=== PATIENT | female | born 2000 | race Caucasian/White ===

== ENCOUNTER 2024-11-24 15:29 | Emergency (ER) | payer OTHER ==
[~2024-11-24] VITALS: Ht 165.1 cm; Wt 54.0 kg
[2024-11-24 16:15] LABS: BASOPHILS % 0.3 % (0.0-2.0); EOSINOPHILS % 0.4 % (0.0-5.0); HEMATOCRIT. 40.4 % (36.0-48.0); HEMOGLOBIN. 13.4 g/dL (12.0-16.0); LYMPHOCYTES % 9.1 % (20.0-50.0); MEAN PLATELET VOLUME 8.0 fl (7.4-10.4); MONOCYTES % 5.2 % (2.0-8.0); NEUTROPHILS % 85.0 % (40.0-76.0); PLATELET 251 x1000/uL (130-400); RED BLOOD CELL COUNT 4.93 mill/uL (4.2-5.4); RED CELL DISTRIBUTION WIDTH 14.3 % (11.6-14.6)
[2024-11-24 16:25] LABS: CREATININE 0.7 mg/dL (0.6-1.0); HCG SCREEN NEGATIVE; UREA NITROGEN BLOOD 15 mg/dL (9-23)
[2024-11-24 16:51] VITALS: TEMP 36.6; O2SAT 99
[2024-11-24 20:07] VITALS: BP 113/73; PULSE 62; RESP 20; O2SAT 100
== END 2024-11-24 20:22 | disposition home or self-care (01) ==
LOC: ER 15:29
DX: N94.6 Dysmenorrhea, unspecified (principal)
CPT/HCPCS: 36415; 76856; 80048; 81025; 84703; 85025; 99284